=== PATIENT | female | born 1980 | race Caucasian/White ===

== ENCOUNTER 2020-01-03 11:06 | Day surgery (SDC) | payer BC ==
[~2020-01-03] VITALS: Ht 167.6 cm; Wt 60.6 kg
[2020-01-03] MEDS ORDERED: SUCCINYLCHOLINE 20 MG/ML, 10ML ONE (11:29)
[2020-01-03] MEDS ORDERED: MIDAZOLAM 1 MG/ML, 2ML ONE (11:29)
[2020-01-03] MEDS ORDERED: PROPOFOL 10 MG/ML, 20ML ONE (11:29)
[2020-01-03] MEDS ORDERED: ROCURONIUM 10MG/ML,5ML ONE (11:29)
[2020-01-03] MEDS ORDERED: CEFAZOLIN 1,000 MG ONE (11:29)
[2020-01-03] MEDS ORDERED: FENTANYL PF 100 MCG/2ML ONE ×2 (11:29→14:25)
[2020-01-03] MEDS ORDERED: DEXAMETHASONE 4 MG/ML, 1ML ONE ×2 (11:29→12:57)
[2020-01-03] MEDS ORDERED: ONDANSETRON 2MG/ML, 2ML ONE (11:29)
[2020-01-03] MEDS ORDERED: NEOSTIGMINE 1 MG/ML, 10ML ONE (11:29)
[2020-01-03] MEDS ORDERED: GLYCOPYRROLATE 0.2MG/1ML, 5ML ONE (11:29)
[2020-01-03] MEDS ORDERED: LACTATED RINGERS 1,000 ML IV SCH (11:40)
[2020-01-03] MEDS ORDERED: LIDOCAINE-MPF 1%, 2ML ONE (11:41)
[2020-01-03] MEDS ORDERED: NORG1TAB7 PO (11:46)
[2020-01-03] MEDS ORDERED: TUMERIC PO (11:46)
[2020-01-03] MEDS ORDERED: BUPR300T49 PO (11:46)
[2020-01-03] MEDS ORDERED: CITA10TA4 PO (11:46)
[2020-01-03] MEDS ORDERED: VITAMIN C PO (11:46)
[2020-01-03] MEDS ORDERED: LISD30CA5 PO (11:46)
[2020-01-03] MEDS ORDERED: MULT-257 PO (11:46)
[2020-01-03 11:53] VITALS: BP 130/83
[2020-01-03] MEDS ORDERED: LIDOCAINE-MPF 1%, 2ML INFIL ONE (12:00)
[2020-01-03] MEDS ORDERED: CHLORHEXIDINE 15 ML UDC MM ONE (12:00)
[2020-01-03] MEDS ORDERED: FUROSEMIDE 20 MG/2 ML ONE (12:43)
[2020-01-03] MEDS ORDERED: EPINEPHRINE TOPICAL SOLN 1 MG/ML, 30ML ONE (12:43)
[2020-01-03] MEDS ORDERED: LIDOCAINE 1%-EPI 1:100K, 20ML ONE (12:44)
[2020-01-03] MEDS ORDERED: BACITRACIN 50,000 UNIT ONE (12:44)
[2020-01-03] MEDS ORDERED: NEOSPORIN OINT, 15GM ONE (12:44)
[2020-01-03 12:48] LABS: HCG UR SG 1.006 (1.003-1.030)
[2020-01-03] MEDS ORDERED: SCOPOLAMINE 1MG PATCH TD SCH (13:00)
[2020-01-03] MEDS ORDERED: SCOPOLAMINE 1MG PATCH TD ONE (13:01)
[2020-01-03] MEDS ORDERED: FLUORESCEIN SODIUM 500 MG/5 ML ONE (13:20)
[2020-01-03] MEDS ORDERED: HYDROcodone/APAP 7.5-325MG/15ML UDC PO PRN (13:30)
[2020-01-03] MEDS ORDERED: MEPERIDINE/PF 25MG/0.5ML IVPush PRN (13:30)
[2020-01-03] MEDS ORDERED: morphine SULFATE 10 MG/ML, 1ML IVPush PRN (13:30)
[2020-01-03] MEDS ORDERED: PROMETHAZINE 25 MG/ML, 1ML IVPush PRN (13:30)
[2020-01-03] MEDS: FENTANYL PF 100 MCG/2ML IV PRN ×2 (14:26→14:38)
[2020-01-03] MEDS ORDERED: OXYcodone 5 MG/5 ML ORAL.SOL UDC ONE ×2 (14:34→14:58)
[2020-01-03] MEDS: OXYcodone 5 MG/5 ML ORAL.SOL UDC PO PRN ×2 (14:40→14:59)
[2020-01-03] MEDS ORDERED: OXYMETAZOLINE NASAL SPRAY 0.05%,30ML NAS PRN (18:00)
== END 2020-01-03 17:50 | disposition home or self-care (01) ==
LOC: OUT 11:06
PROVIDERS: ATTEND Otolaryngology
DX: J32.0 Chronic maxillary sinusitis (principal); Z11.59 Encounter for screening for other viral diseases; J32.2 Chronic ethmoidal sinusitis; J34.2 Deviated nasal septum; Z79.899 Other long term (current) drug therapy; Z98.890 Other specified postprocedural states; Z82.49 Family history of ischemic heart disease and other diseases of the circulatory system; Z82.5 Family history of asthma and other chronic lower respiratory diseases
CPT/HCPCS: 30520; 31240; 31254; 31256; 31267; 36415; 81025; 87635; 88304; 88305; J0330; J0690; J1100; J1940; J2250; J2270; J2405; J2704; J2710; J3010; J3490; J7120

== ENCOUNTER 2020-01-10 06:03 | Day surgery (SDC) | payer BC ==
[~2020-01-10] VITALS: Ht 167.6 cm; Wt 60.0 kg
[~2020-01-10 06:03] MED LIST: BUPR300T49 PO; CITA10TA4 PO; LISD30CA5 PO; MULT-257 PO; NORG1TAB7 PO; TUMERIC PO; VITAMIN C PO
[2020-01-10] MEDS ORDERED: NEOSPORIN OINT, 15GM ONE (06:44)
[2020-01-10] MEDS ORDERED: LIDOCAINE 1%-EPI 1:100K, 20ML ONE (06:44)
[2020-01-10 06:53] VITALS: BP 114/78
[2020-01-10] MEDS ORDERED: CHLORHEXIDINE 15 ML UDC ONE (07:06)
[2020-01-10] MEDS ORDERED: CHLORHEXIDINE 15 ML UDC MM ONE (07:30)
== END 2020-01-10 08:05 | disposition home or self-care (01) ==
LOC: OUT 06:03
PROVIDERS: ATTEND Otolaryngology
DX: J32.2 Chronic ethmoidal sinusitis (principal); Z11.59 Encounter for screening for other viral diseases
CPT/HCPCS: 87635; J3490